=== PATIENT | female | born 1950 | race Two or more races ===

== ENCOUNTER 2023-07-23 14:22 | Emergency (ER) | payer OTHER ==
[~2023-07-23] VITALS: Ht 162.6 cm; Wt 63.5 kg
[2023-07-23] MEDS ORDERED: HYDRALAZINE HCL25 MG PO (14:45)
[2023-07-23] MEDS ORDERED: OMEPRAZOLE-BIC1 EAC1 (14:45)
[2023-07-23] MEDS ORDERED: LASIX20 MG (14:45)
[2023-07-23] MEDS ORDERED: NIFEDIPINE20 MG (14:46)
[2023-07-23] MEDS ORDERED: TOPROL XL100 M1 (14:46)
[2023-07-23] MEDS ORDERED: KEPPRA500 MG (14:47)
[2023-07-23] MEDS ORDERED: ISOSORBIDE MONO60 MG (14:47)
[2023-07-23] MEDS ORDERED: ASPIRIN325 MG (14:47)
[2023-07-23] MEDS ORDERED: COZAAR100 MG (14:47)
[2023-07-23] MEDS ORDERED: INTESTINEX680 M1 (14:48)
[2023-07-23] MEDS ORDERED: INTEGRA PLUS C1 EACH (14:48)
[2023-07-23] MEDS ORDERED: PEPCID AC20 MG (14:48)
[2023-07-23] MEDS ORDERED: LIPITOR20 MG (14:49)
[2023-07-23] MEDS ORDERED: NEURONTIN800 MG (14:49)
[2023-07-23] MEDS ORDERED: PLAVIX75 MG (14:49)
[2023-07-23] MEDS ORDERED: ZYRTEC10 M3 (14:50)
[2023-07-23] MEDS ORDERED: ZOLOFT100 MG PO (14:51)
[2023-07-23] MEDS ORDERED: CEFTRIAXONE SODIUM 1,000 MG VIAL IV ONE (15:30)
[2023-07-23 16:26] LABS: ALBUMIN 3.4 gm/dL (3.4-5.0); BILIRUBIN TOTAL 0.57 mg/dL (0.3-1.2); CALCIUM 9.1 mg/dL (8.5-10.1); CREATININE SERUM 0.62 mg/dL (0.55-1.02); GFR 94.09; GLOBULINA 4.1 G/DL (2.4-3.5); POTASSIUM 3.52 mEq/L (3.5-5.1); TOTAL PROTEIN 7.5 gm/dL (6.4-8.2)
[2023-07-23 16:49] LABS: HEMATOCRIT 33.4 % (36.0-45.00); HEMOGLOBIN 11.9 g/dL (12.0-15.00); MEAN CELL VOLUME 87.6 fL (80.00-100.00); MEAN CORPUSCULAR HEMOGLOBIN 31.1 pg (27.00-32.0); MEAN CORPUSCULAR HGB CONC 35.5 g/dl (32.0-36.0); RED BLOOD COUNT 3.81 M/uL (4.00-6.00); RED CELL DISTRIBUTION WIDTH 16.2 % (11.5-14.5)
[2023-07-23 16:50] LABS: PLATELET COUNT 121 K/uL (150-450)
[2023-07-23 17:03] LABS: PH,URINE 5.5 (5.0-8.0); URINE APPEARANCE Turbid; URINE BILIRRUBIN Negative (NEGATIVE); URINE BLOOD Negative; URINE COLOR Dark Yellow; URINE GLUCOSE Negative (NEGATIVE); URINE LEUKOCYTE Large; URINE NITRATE Negative
[2023-07-23 17:07] LABS: URINE BACTERIA 1664.3 uL (0.0-1933); URINE EPITHELIAL CELLS 30.4 uL (0.0-38.8); URINE RBC 22.7 uL (0.0-20.8); URINE WBC 2045.1 uL (0.0-23.2)
[2023-07-23 17:23] LABS: INR 1.13; PARTIAL THROMBOPLASTIN TIME 30.8 SECONDS (22.0-34.0); PROTHROMBIN TIME 11.8 SECONDS (9.0-11.5)
[2023-07-23 17:29] LABS: URINE PROTEIN 100 (NEGATIVE)
== END 2023-07-23 18:57 | disposition home or self-care (01) ==
LOC: ER 14:22
PROVIDERS: General Practice
DX: N39.0 Urinary tract infection, site not specified (principal); M54.9 Dorsalgia, unspecified; L03.90 Cellulitis, unspecified; I10 Essential (primary) hypertension; Z88.2 Allergy status to sulfonamides
CPT/HCPCS: 36415; 72100; 96365; 99283; J0696

== ENCOUNTER 2023-12-03 13:48 | Emergency (ER) | payer OTHER ==
[~2023-12-03] VITALS: Ht 162.6 cm; Wt 81.6 kg
[~2023-12-03 13:48] MED LIST: ASPIRIN325 MG; COZAAR100 MG; HYDRALAZINE HCL25 MG PO; INTEGRA PLUS C1 EACH; INTESTINEX680 M1; ISOSORBIDE MONO60 MG; KEPPRA500 MG; LASIX20 MG; LIPITOR20 MG; NEURONTIN800 MG; NIFEDIPINE20 MG; OMEPRAZOLE-BIC1 EAC1; PEPCID AC20 MG; PLAVIX75 MG; TOPROL XL100 M1; ZOLOFT100 MG PO; ZYRTEC10 M3
[2023-12-03] MEDS ORDERED: TRIAMCINOLONE ACETONIDE 40 MG/ML VIAL IM ONE (15:45)
== END 2023-12-03 16:51 | disposition home or self-care (01) ==
LOC: ER 13:50
DX: M25.562 Pain in left knee (principal); M25.572 Pain in left ankle and joints of left foot; Z88.2 Allergy status to sulfonamides; E03.8 Other specified hypothyroidism; I10 Essential (primary) hypertension; Z86.73 Personal history of transient ischemic attack (TIA), and cerebral infarction without residual deficits; M19.90 Unspecified osteoarthritis, unspecified site; I20.89 Other forms of angina pectoris; M77.32 Calcaneal spur, left foot
CPT/HCPCS: 73560; 73610; 96372; 99283; J3301